=== PATIENT | male | born 1980 | race Caucasian/White ===

== ENCOUNTER 2018-08-18 01:10 | Emergency (ER) | payer SELFPAY ==
--- NOTE | 2018-08-18 01:49 | ER ---
Nurse's Notes [facility] Name: Edis Wolff Age: 38 yrs Sex: Male : 1980 Arrival Date: 08/18/2018 Time: 01:16 Bed 8 Private MD: Diagnosis: Puncture wound without foreign body of left hand Presentation: 08/18 01:16 Presenting complaint: EMS states: they were toned out for report of pt lacerating left bb hand while shucking oysters approx 45 mins ago. Transition of care: patient was not received from another setting of care. Onset of symptoms was August 18, 2018. Risk Assessment: Do you want to hurt yourself or someone else? Patient reports no desire to harm self or others. Initial Sepsis Screen: Does the patient meet any 2 criteria? No. Patient's initial sepsis screen is negative. Does the patient have a suspected source of infection? No. Patient's initial sepsis screen is negative. Care prior to arrival: bandage to left hand. 01:16 Method Of Arrival: EMS: [facility] 01:16 Acuity: LUIGI 4 bb Triage Assessment: 02:08 General: Appears. tl2 02:08 General: Appears in no apparent distress. Behavior is calm, cooperative, appropriate tl2 for age. Pain: Complains of pain in palm of left hand. Musculoskeletal: Circulation, motion, and sensation intact. Injury Description: Laceration sustained to palm of left hand is clean, 2.6 to 7.5 cm long, was sustained 30-60 minutes ago. a small amount of bleeding noted at this time. Historical: - Allergies: 01:18 No Known Allergies; bb - Home Meds: 01:18 None [Active]; bb - PMHx: 01:18 None; bb - PSHx: 01:18 None; bb - Immunization history:: Adult Immunizations up to date, Last tetanus immunization: < 10 years ago. - Social history:: Smoking status: Patient/guardian denies using tobacco, Patient uses alcohol, occasionally. street drugs, marijuana. - Ebola Screening: : No symptoms or risks identified at this time. Screenin:08 Abuse screen: Denies threats or abuse. Nutritional screening: No deficits noted. tl2 Tuberculosis screening: No symptoms or risk factors identified. Fall Risk None identified. Assessment: 02:08 General: Pt eloped before being seen by provider. tl2 Vital Signs: 01:18 BP 149 / 92; Pulse 93; Resp 16 S; Temp 99.3(O); Pulse Ox 95% on R/A; Weight 81.65 kg bb (R); Height 5 ft. 8 in. (172.72 cm) (R); Pain 8/10; 01:18 Body Mass Index 27.37 (81.65 kg, 172.72 cm) bb ED Course: 01:16 Patient arrived in ED. bb 01:17 Kendra Lucas FNP-C is PHCP. snw 01:17 Baltazar Morgan MD is Attending Physician. snw 01:18 Triage completed. bb 01:18 Arm band placed on Patient placed in an exam room, on a stretcher, on pulse oximetry. bb 02:08 No provider procedures requiring assistance completed. Patient did not have IV access tl2 during this emergency room visit. Administered Medications: No medications were administered Outcome: 02:09 Eloped from patient exam room, before seeing physician post triage evaluation and tl2 consult. Pt left room after triage but before Provider treatment 02:09 Condition: stable 02:09 Discharge instructions given to pt eloped 02:10 Patient left the ED. tl2 Signatures: Kendra Lucas FNP-C FNP-Csnw Josephine Baptiste, RN RN bb Moriah Lozano, RN RN tl2
--- NOTE | 2018-08-18 01:49 | EDPHYS ---
Physician Documentation [facility] Name: Edis Wolff Age: 38 yrs Sex: Male : 1980 Arrival Date: 08/18/2018 Time: 01:16 Bed 8 Private MD: ED Physician Baltazar Morgan HPI: 08/18 01:25 This 38 yrs old Male presents to ER via EMS with complaints of Hand Injury. snw 01:25 The patient or guardian reports a laceration, 2 cm(s), simple. The complaints affect snw the palm of left hand. Context: The problem was sustained outdoors, resulted from shucking oysters and knife slipped and punctured left palm. Onset: The symptoms/episode began/occurred suddenly, just prior to arrival. Modifying factors: The symptoms are alleviated by nothing. Severity of symptoms: At their worst the symptoms were mild, pt states impressive bleeding post injury, packed area with corn starch. The patient has not experienced similar symptoms in the past. It is unknown whether or not the patient has recently seen a physician. Historical: - Allergies: 01:18 No Known Allergies; bb - Home Meds: 01:18 None [Active]; bb - PMHx: 01:18 None; bb - PSHx: 01:18 None; bb - Immunization history:: Adult Immunizations up to date, Last tetanus immunization: < 10 years ago. - Social history:: Smoking status: Patient/guardian denies using tobacco, Patient uses alcohol, occasionally. street drugs, marijuana. - Ebola Screening: : No symptoms or risks identified at this time. ROS: 01:48 Constitutional: Negative for fever, chills, and weight loss, Eyes: Negative for injury, snw pain, redness, and discharge, ENT: Negative for injury, pain, and discharge, Neck: Negative for injury, pain, and swelling, Cardiovascular: Negative for chest pain, palpitations, and edema, Respiratory: Negative for shortness of breath, cough, wheezing, and pleuritic chest pain, Abdomen/GI: Negative for abdominal pain, nausea, vomiting, diarrhea, and constipation, Back: Negative for injury and pain, : Negative for injury, bleeding, discharge, and swelling, MS/Extremity: Negative for injury and deformity, Neuro: Negative for headache, weakness, numbness, tingling, and seizure. 01:48 Skin: Positive for laceration(s), puncture. Exam: 01:23 Constitutional: This is a well developed, well nourished patient who is awake, alert, snw and in no acute distress. Head/Face: Normocephalic, atraumatic. Eyes: Pupils equal round and reactive to light, extra-ocular motions intact. Lids and lashes normal. Conjunctiva and sclera are non-icteric and not injected. Cornea within normal limits. Periorbital areas with no swelling, redness, or edema. ENT: Nares patent. No nasal discharge, no septal abnormalities noted. Tympanic membranes are normal and external auditory canals are clear. Oropharynx with no redness, swelling, or masses, exudates, or evidence of obstruction, uvula midline. Mucous membranes moist. Neck: Trachea midline, no thyromegaly or masses palpated, and no cervical lymphadenopathy. Supple, full range of motion without nuchal rigidity, or vertebral point tenderness. No Meningismus. Chest/axilla: Normal chest wall appearance and motion. Nontender with no deformity. No lesions are appreciated. Cardiovascular: Regular rate and rhythm with a normal S1 and S2. No gallops, murmurs, or rubs. Normal PMI, no JVD. No pulse deficits. Respiratory: Lungs have equal breath sounds bilaterally, clear to auscultation and percussion. No rales, rhonchi or wheezes noted. No increased work of breathing, no retractions or nasal flaring. Abdomen/GI: Soft, non-tender, with normal bowel sounds. No distension or tympany. No guarding or rebound. No evidence of tenderness throughout. Back: No spinal tenderness. No costovertebral tenderness. Full range of motion. MS/ Extremity: Pulses equal, no cyanosis. Neurovascular intact. Full, normal range of motion. Neuro: Awake and alert, GCS 15, oriented to person, place, time, and situation. Cranial nerves II-XII grossly intact. Motor strength 5/5 in all extremities. Sensory grossly intact. Cerebellar exam normal. Normal gait. Psych: Awake, alert, with orientation to person, place and time. Behavior, mood, and affect are within normal limits. 01:23 Skin: Appearance: normal except for affected area, injury, laceration(s), the wound is approximately 1 cm(s), with a depth of 2 cm(s), of the palm of left hand. Vital Signs: 01:18 BP 149 / 92; Pulse 93; Resp 16 S; Temp 99.3(O); Pulse Ox 95% on R/A; Weight 81.65 kg bb (R); Height 5 ft. 8 in. (172.72 cm) (R); Pain 8/10; 01:18 Body Mass Index 27.37 (81.65 kg, 172.72 cm) bb MDM: 01:17 Patient medically screened. snw 01:27 Data reviewed: vital signs, nurses notes. Data interpreted: Pulse oximetry: on room air snw is 95 %. Interpretation: acceptable. Counseling: I had a detailed discussion with the patient and/or guardian regarding: the historical points, exam findings, and any diagnostic results supporting the discharge/admit diagnosis, the presence of at least one elevated blood pressure reading (>120/80) during this emergency department visit, the need for outpatient follow up, to return to the emergency department if symptoms worsen or persist or if there are any questions or concerns that arise at home. Special discussion: I have referred the patient to see his PCP for further evaluation of high blood pressure. I discussed in detail with the patient the higher chance of wound infection based on his presenting history. Based on the history and exam findings, there is no indication for further emergent testing or inpatient evaluation. I discussed with the patient/guardian the need to see the primary care provider for further evaluation of the symptoms. Administered Medications: No medications were administered Disposition: 06:55 Co-signature as Attending Physician, Baltazar Morgan MD I agree with the assessment and wa plan of care. Disposition: 08/18/18 01:48 Patient left the facility after being seen by provider. Preliminary diagnosis is Puncture wound without foreign body of left hand. - Patient left due to unknown. - Condition is Stable. Signatures: Dispatcher [employer] EDMS Kendra Lucas FNP-Poonam CHART PICKER-Stevenw Josephine Baptiste RN RN bb Knox, Taylor, RN RN tl2 Baltazar Morgan MD MD ga Corrections: (The following items were deleted from the chart) 01:43 01:23 Dressing - Wound ordered. snw tl2 01:45 01:24 Wound Repair of 2cm ( 0.8in ) subcutaneous laceration to palm of left hand. snw Linear shaped.. Distal neuro/vascular/tendon intact. Anesthesia: Local anesthetic administered with 5 mls of 1% lidocaine. Wound prep: Moderate cleansing with hibiclenz. Skin closed with 2 3-0 Prolene using simple sutures and sterile technique. Dressed with non-adherent dressing. Patient tolerated well. snw 02:10 01:48 08/18/2018 01:48 Patient left the facility after being seen by provider. tl2 Preliminary diagnosis is Puncture wound without foreign body of left hand. Reason stated they are leaving due to unknown. Condition is Stable. snw
== END 2018-08-18 02:10 | disposition left against medical advice (07) ==
LOC: ER 01:10
PROC: 0JQK0ZZ Repair Left Hand Subcutaneous Tissue and Fascia, Open Approach (ICD-10-PCS; principal; 2018-08-18)
DX: S61.432A Puncture wound without foreign body of left hand, initial encounter (principal); W26.0XXA Contact with knife, initial encounter; Y93.89 Activity, other specified; Y92.89 Other specified places as the place of occurrence of the external cause
CPT/HCPCS: 99283